=== PATIENT | male | born 1985 | race Caucasian/White ===

== ENCOUNTER 2017-03-21 11:49 | Emergency (ER) | payer BC ==
[2017-03-21 12:11] VITALS: BP 133/67
[2017-03-21] MEDS ORDERED: Bacitracin Oint 1 GM U/D Packet TOP ONE (12:37)
[2017-03-21] MEDS ORDERED: Lidocaine 1% 30 ML SDV INJECT ONE (12:37)
--- NOTE | 2017-03-21 12:58 | EDM.PDOC ---
ED HPI GENERAL MEDICAL PROBLEM - General Chief Complaint: Laceration Stated Complaint: RT SHINE, CUT Time Seen by Provider: 03/21/17 12:47 Source of Information: Reports: Patient History Limitations: Reports: No Limitations - History of Present Illness INITIAL COMMENTS - FREE TEXT/NARRATIVE: 32 yo White male c/o laceration to right anterior leg laceration by wood board when working on roof today Onset: Today Onset Date: 03/21/17 Onset Time: 12:00 Duration: Hour(s): Location: Reports: Lower Extremity, Right Quality: Reports: Ache Severity: Mild Improves with: Reports: None Worsens with: Reports: None Context: Reports: Trauma Associated Symptoms: Reports: No Other Symptoms - Related Data Allergies Allergy/AdvReac Type Severity Reaction Status Date / Time No Known Allergies Allergy Verified 03/21/17 12:08 Home Meds: Home Meds Fluocinonide [Lidex 0.05% Crm] 1 applic TOP ASDIRECTED 03/21/17 [History] Past Medical History Dermatologic History: Reports: Eczema - Infectious Disease History Infectious Disease History: Reports: None Social & Family History - Family History Family Medical History: Noncontributory - Tobacco Use Smoking Status *Q: Current Every Day Smoker Years of Tobacco use: 16 Packs/Tins Daily: 0.5 - Caffeine Use Caffeine Use: Reports: Coffee, Soda - Alcohol Use Days Per Week of Alcohol Use: 2 Number of Drinks Per Day: 3 Total Drinks Per Week: 6 - Recreational Drug Use Recreational Drug Use: No ED ROS GENERAL - Review of Systems Review Of Systems: See Below Constitutional: Reports: No Symptoms HEENT: Reports: No Symptoms Respiratory: Reports: No Symptoms Cardiovascular: Reports: No Symptoms Endocrine: Reports: No Symptoms GI/Abdominal: Reports: No Symptoms : Reports: No Symptoms Musculoskeletal: Reports: No Symptoms Skin: Reports: Other (right anterior leg laceration) Neurological: Reports: No Symptoms Psychiatric: Reports: No Symptoms Hematologic/Lymphatic: Reports: No Symptoms Immunologic: Reports: No Symptoms ED EXAM, SKIN/RASH Exam: See Below Exam Limited By: No Limitations General Appearance: Alert, WD/WN, No Apparent Distress Eye Exam: Bilateral Eye: EOMI Ears: Normal External Exam Nose: Normal Inspection Throat/Mouth: Normal Inspection Head: Atraumatic Neck: Normal Inspection Respiratory/Chest: No Respiratory Distress Cardiovascular: Normal Peripheral Pulses Peripheral Pulses: 2+: Femoral (L), Femoral (R) GI/Abdominal: Normal Bowel Sounds Back Exam: Normal Inspection Extremities: Normal Inspection Neurological: Alert, Oriented, CN II-XII Intact Psychiatric: Normal Affect Skin: Other (3cm full thickness laceration to right anterior leg) Location, Skin: Lower Extremity, Right ED SKIN PROCEDURES - Laceration/Wound Repair Right Anterior Leg Lac/Wound length In cm: 3 Appearance: Linear Distal NVT: Neuro & Vascular Intact, No Tendon Injury Anesthetic Type: Local Local Anesthesia - Lidocaine (Xylocaine): 1% Plain Local Anesthetic Volume: 5cc Skin Prep: Chlorhexidine (Hibiciens) Saline Irrigation (cc's): 5 Closed with: Sutures, Steri-Strips Suture Size: 4-0 Drain Placement: No Sterile Dressing Applied: Nurse Tetanus Status Addressed: Yes Complications: No Course - Vital Signs Last Recorded V/S: Last Vital Signs Temp 37.2 C 03/21/17 12:09 Pulse 73 03/21/17 12:09 Resp 16 03/21/17 12:09 BP 133/67 03/21/17 12:09 Pulse Ox 99 03/21/17 12:09 - Orders/Labs/Meds Meds: Medications Discontinued Medications Generic Name Dose Route Start Last Admin Trade Name Pipo PRN Reason Stop Dose Admin Bacitracin 1 dose 03/21/17 12:37 03/21/17 12:41 Bacitracin Oint 1 Gm TOP 03/21/17 12:38 1 dose ONETIME ONE Administration Lidocaine HCl 30 ml 03/21/17 12:37 03/21/17 12:41 Xylocaine-Mpf 1% INJECT 03/21/17 12:38 30 ml ONETIME ONE Administration Departure - Departure Time of Disposition: 13:08 Disposition: Home, Self-Care 01 Condition: Good Clinical Impression: Laceration of leg Qualifiers: Encounter type: initial encounter Laterality: right Qualified Code(s): S81.811A - Laceration without foreign body, right lower leg, initial encounter - Discharge Information Instructions: Laceration Care, Adult, [id number] Additional Instructions: keep area clean and dry Have wound check in 2 days Take the oral Antibiotic KEFLEX 500mg BID #20 Apply the Topical Antibiotic Ointment ( BACTROBAN) to leg wound BID # 22g w/ one refill Have Sutures removed in 7-10 days
== END 2017-03-21 13:20 | disposition home or self-care (01) ==
LOC: DL.ED 11:49
DX: S81.811A Laceration without foreign body, right lower leg, initial encounter (principal); W45.8XXA Other foreign body or object entering through skin, initial encounter; Y99.0 Civilian activity done for income or pay
CPT/HCPCS: 12002; 99283